=== PATIENT | male | born 2000 | race Caucasian/White ===

== ENCOUNTER 2018-12-14 08:24 | Emergency (ER) | payer BC, OTHER ==
[~2018-12-14] VITALS: Ht 172.7 cm; Wt 69.0 kg
[~2018-12-14 08:24] MED LIST: ACET500C5 PO; AZIT250T PO; FAMO-96 PO; IBUP-1542 PO; ONDA4TAB14 PO; SUCR1TAB56 PO
[2018-12-14 08:28] VITALS: BP 156/70; PULSE 86; RESP 19; Ht 172.7 cm; Wt 69.0 kg
[2018-12-14] MEDS ORDERED: ONDANSETRON (ODT) 4 MG TAB ODT STA (08:51)
[2018-12-14] MEDS ORDERED: LIDOCAINE/MYLANTA 40 ML BTL PO ONE (09:00)
== END 2018-12-14 09:44 | disposition home or self-care (01) ==
LOC: FTE 08:24
DX: R10.9 Unspecified abdominal pain (principal); R11.2 Nausea with vomiting, unspecified
CPT/HCPCS: Z7502; Z7610; 99283